=== PATIENT | female | born 1935 | race American Indian/Alaskan Native ===

== ENCOUNTER 2016-04-29 19:35 | Emergency (ER) | payer MEDICARE, MEDICAID ==
[2016-04-29 20:37] VITALS: BP 160/80
--- NOTE | 2016-04-29 21:29 | EDM.PDOC ---
ED HPI Trauma - General Chief Complaint: Lower Extremity Injury/Pain Stated Complaint: LEGS SWELLING Source: Reports: Patient, RN notes reviewed - History of Present Illness INITIAL COMMENTS - FREE TEXT/NARRATIVE: Fell tuesday going into [employer] tripping on door jam. Pain to left ankle and foot with swelling since, has continued to walk on foot. Utilizes walker or cane with ambulation. No loss of consciousness, no other injury Occurred When: other Method of Injury: fall Allergies/ADRs: Allergies No Known Allergies Allergy (Verified 04/29/16 19:39) Home Medications: Ambulatory Orders Aspirin 81 mg PO DAILY 04/12/13 [Confirmed 04/29/16] Carvedilol [Coreg] 12.5 mg PO BID 04/12/13 [Confirmed 04/29/16] Cyanocobalamin (Vitamin B12) [Vitamin B12] 1,000 mcg IM ONETIME 04/12/13 [ Confirmed 04/29/16] Ferrous Sulfate [Iron] 325 mg PO DAILY 04/12/13 [Confirmed 04/29/16] Furosemide 20 mg PO DAILY 04/12/13 [Confirmed 04/29/16] Lovastatin 20 mg PO DAILY 04/12/13 [Confirmed 04/29/16] Multivitamin with Minerals [Multiple Vitamin] 1 tab PO DAILY 04/12/13 [ Confirmed 04/29/16] Ramipril [Altace] 2.5 mg PO DAILY 04/12/13 [Confirmed 04/29/16] Ranitidine [Zantac] 150 mg PO BID 04/12/13 [Confirmed 04/29/16] Digoxin [Lanoxin] 125 mcg PO DAILY 04/13/13 [Confirmed 04/29/16] Hydrocodone/Acetaminophen [Lorcet 5-325 mg Tablet] 1 each PO BID 08/12/14 [ Confirmed 04/29/16] Levothyroxine [Synthroid] 50 mcg PO ACBREAKFAST 04/29/16 [Confirmed 04/29/16] Past Medical History Cardiovascular History: Reports: CAD, High cholesterol, Hypertension, Pacemaker Gastrointestinal History: Reports: Diverticulosis, GERD Genitourinary History: Reports: Renal disease, UTI, recurrent Musculoskeletal History: Reports: Gout, Osteoarthritis Hematologic History: Reports: Anemia Social & Family History - Tobacco Use Smoking Status *Q: Never Smoker Years of Tobacco use: 35 Used Tobacco, but Quit: Yes Month Tobacco Last Used: July Second Hand Smoke Exposure: No - Caffeine Use Caffeine Use: Reports: Coffee - Alcohol Use Days Per Week of Alcohol Use: 0 - Recreational Drug Use Recreational Drug Use: No - Living Situation & Occupation Living situation: Reports: , with family Occupation: retired Review of Systems - Review of Systems Review Of Systems: ROS reveals no pertinent complaints other than HPI. Trauma Exam - Physical Exam Exam: See Below Exam Limited By: No limitations General Appearance: Reports: alert, no apparent distress Head: Reports: atraumatic, normocephalic Eyes: bilateral eye: EOMI, PERRL Ears: Reports: normal external exam Nose: Reports: normal inspection Throat/Mouth: Reports: Normal oropharynx Neck: Reports: non-tender, full range of motion Respiratory Exam: Reports: no respiratory distress Cardiovascular: Reports: normal peripheral pulses GI/Abdominal: Reports: normal bowel sounds Extremities: Reports: normal range of motion, pain with movement, other (left forefoot and ankle swollen, tnder to lateral palpation , increased with inversion). Denies: no evidence of injury, unable to bear weight Course - Vital Signs Last Recorded V/S: Last Vital Signs Temp 97.8 F 04/29/16 20:36 Pulse 65 04/29/16 20:36 Resp 18 04/29/16 20:36 BP 160/80 H 04/29/16 20:36 Pulse Ox 98 04/29/16 20:36 - Radiology Interpretation Free Text/Narrative:: xray foot and ankle onleft negative Departure - Departure Time of Disposition: 21:27 Disposition: Home, Self-Care 01 Condition: good Clinical Impression: Mild ankle sprain Qualifiers: Encounter type: initial encounter Laterality: left Qualified Code(s): S93.402A - Sprain of unspecified ligament of left ankle, initial encounter Instructions: Ankle Sprain, [id number] Referrals: Alfredo Altman MD [Primary Care Provider] - Forms: ED Department Discharge Additional Instructions: elevate extremity use walker follow up in clinic in one week if continued pain and swelling anupam wrap for comfort
== END 2016-04-29 21:34 | disposition home or self-care (01) ==
LOC: DL.ED 19:35
DX: S93.402A Sprain of unspecified ligament of left ankle, initial encounter (principal); I25.10 Atherosclerotic heart disease of native coronary artery without angina pectoris; E78.00 Pure hypercholesterolemia, unspecified; I10 Essential (primary) hypertension; K21.9 Gastro-esophageal reflux disease without esophagitis; M19.90 Unspecified osteoarthritis, unspecified site; Z87.440 Personal history of urinary (tract) infections; Z86.2 Personal history of diseases of the blood and blood-forming organs and certain disorders involving the immune mechanism; W18.09XA Striking against other object with subsequent fall, initial encounter
CPT/HCPCS: 73610-LT; 73620-LT; 99282; 99283

== ENCOUNTER 2016-08-29 15:22 | Emergency (ER) | payer MEDICARE, MEDICAID ==
[2016-08-29 15:42] VITALS: BP 154/76
--- NOTE | 2016-08-29 16:39 | EDM.PDOC ---
ED HPI GENERAL MEDICAL PROBLEM - General Chief Complaint: Upper Extremity Injury/Pain Stated Complaint: CANT MOVE HER ARM, [id number] Time Seen by Provider: 08/29/16 16:34 Source of Information: Reports: Patient History Limitations: Reports: No Limitations - History of Present Illness INITIAL COMMENTS - FREE TEXT/NARRATIVE: 81 yo female presents with inability to move left arm. states that she woke this morning with pain with movement. C/o mid humerus pain, does not radiate, but states that she does have some shoulder pain. no complaints of weakness. no other complaints. Onset: Today, Sudden Duration: Constant Location: Reports: Upper Extremity, Left Quality: Reports: Ache, Throbbing Severity: Moderate Improves with: Reports: None Worsens with: Reports: Movement Context: Reports: Activity Associated Symptoms: Reports: No Other Symptoms Left Arm Pain Score (Numeric/FACES): 8 - Related Data Allergies Allergy/AdvReac Type Severity Reaction Status Date / Time No Known Allergies Allergy Verified 04/29/16 19:39 Home Meds: Home Meds Aspirin 81 mg PO DAILY 04/12/13 [History] Carvedilol [Coreg] 12.5 mg PO BID 04/12/13 [History] Cyanocobalamin (Vitamin B12) [Vitamin B12] 1,000 mcg IM ONETIME 04/12/13 [ History] Ferrous Sulfate [Iron] 325 mg PO DAILY 04/12/13 [History] Furosemide 20 mg PO DAILY 04/12/13 [History] Lovastatin 20 mg PO DAILY 04/12/13 [History] Multivitamin with Minerals [Multiple Vitamin] 1 tab PO DAILY 04/12/13 [History] Ramipril [Altace] 2.5 mg PO DAILY 04/12/13 [History] Ranitidine [Zantac] 150 mg PO BID 04/12/13 [History] Digoxin [Lanoxin] 125 mcg PO DAILY 04/13/13 [History] Hydrocodone/Acetaminophen [Lorcet 5-325 mg Tablet] 1 each PO BID 08/12/14 [ History] Levothyroxine [Synthroid] 50 mcg PO ACBREAKFAST 04/29/16 [History] Past Medical History Cardiovascular History: Reports: CAD, High Cholesterol, Hypertension, Pacemaker Gastrointestinal History: Reports: Diverticulosis, GERD Genitourinary History: Reports: Renal Disease, UTI, Recurrent Musculoskeletal History: Reports: Gout, Osteoarthritis Hematologic History: Reports: Anemia Social & Family History - Tobacco Use Smoking Status *Q: Never Smoker Years of Tobacco use: 35 Used Tobacco, but Quit: Yes Month Tobacco Last Used: July Second Hand Smoke Exposure: No - Caffeine Use Caffeine Use: Reports: Soda, Tea - Alcohol Use Days Per Week of Alcohol Use: 0 - Recreational Drug Use Recreational Drug Use: No - Living Situation & Occupation Living situation: Reports: , with Family Occupation: Retired Review of Systems - Review of Systems Review Of Systems: ROS reveals no pertinent complaints other than HPI. ED EXAM, GENERAL - Physical Exam Exam: See Below Exam Limited By: No Limitations General Appearance: Alert, WD/WN, No Apparent Distress Eye Exam: Bilateral Eye: PERRL Neck: Normal Inspection, Supple, Non-Tender, Full Range of Motion Respiratory/Chest: No Respiratory Distress, Lungs Clear, Normal Breath Sounds, No Accessory Muscle Use, Chest Non-Tender Cardiovascular: Normal Peripheral Pulses, Regular Rate, Rhythm, No Edema, No Gallop, No JVD, No Murmur, No Rub GI/Abdominal: Normal Bowel Sounds, Soft, Non-Tender, No Organomegaly, No Distention, No Abnormal Bruit, No Mass Extremities: Normal Inspection, Non-Tender, No Pedal Edema, Normal Capillary Refill, Limited Range of Motion (due to pain, unbale to flex leg arm or raise at shoulder. Adduction only. ), Other (health support specialist equal bialterally ) Neurological: Alert, Oriented Skin Exam: Warm, Dry, Intact, Normal Color, No Rash Course - Vital Signs Last Recorded V/S: Last Vital Signs Temp 98.4 F 08/29/16 15:41 Pulse 77 08/29/16 15:41 Resp 20 08/29/16 15:41 BP 154/76 H 08/29/16 15:41 Pulse Ox 96 08/29/16 15:41 - Orders/Labs/Meds Orders: Active Orders 24 hr Category Date Time Status Humerus Lt [CR] Urgent Exams 08/29/16 16:46 Taken Meds: Medications Discontinued Medications Generic Name Dose Route Start Last Admin Trade Name Freq PRN Reason Stop Dose Admin Orphenadrine Citrate 60 mg 08/29/16 17:45 08/29/16 18:03 Norflex IM 08/29/16 17:46 60 mg Q12H ONE Administration - Radiology Interpretation Free Text/Narrative:: no acute frcture noted. Old degenerative changes per radiology. X-ray tech states unable to get x-rays due to pain. will give muscle relaxant and monitor. Departure - Departure Time of Disposition: 18:05 Disposition: Home, Self-Care 01 Clinical Impression: Shoulder contusion Qualifiers: Encounter type: initial encounter Laterality: left Qualified Code(s): S40.012A - Contusion of left shoulder, initial encounter - Discharge Information Instructions: Shoulder Pain, [id number] Forms: ED Department Discharge Additional Instructions: Take your pain medication as prescribed. Take the muscle relaxer as needed for spasms. Do range of motion exercises to strengthen arm. Follow up in 1 week with your PCP. They may need to do another x-ray of the shoulder to evaluate for fracture. return for any worsening symptoms. - My Orders Last 24 Hours: My Active Orders 08/29/16 16:46 Humerus Lt [CR] Urgent - Assessment/Plan Last 24 Hours: My Active Orders 08/29/16 16:46 Humerus Lt [CR] Urgent
== END 2016-08-29 18:23 | disposition home or self-care (01) ==
LOC: DL.ED 15:22
DX: S40.012A Contusion of left shoulder, initial encounter (principal); I25.10 Atherosclerotic heart disease of native coronary artery without angina pectoris; I10 Essential (primary) hypertension; K21.9 Gastro-esophageal reflux disease without esophagitis; D64.9 Anemia, unspecified; M19.90 Unspecified osteoarthritis, unspecified site; Z79.82 Long term (current) use of aspirin; Z87.440 Personal history of urinary (tract) infections; Z79.899 Other long term (current) drug therapy; X58.XXXA Exposure to other specified factors, initial encounter
CPT/HCPCS: 73060; 96372; 99284; J2360

== ENCOUNTER 2016-09-01 13:29 | Emergency (ER) | payer MEDICARE, MEDICAID ==
[2016-09-01 13:21] VITALS: BP 147/77
--- NOTE | 2016-09-01 15:04 | EDM.PDOC ---
ED HPI GENERAL MEDICAL PROBLEM - General Chief Complaint: General Stated Complaint: IN BY AMBULANCE Time Seen by Provider: 09/01/16 14:45 Source of Information: Reports: Patient, Family History Limitations: Reports: No Limitations - History of Present Illness INITIAL COMMENTS - FREE TEXT/NARRATIVE: This 81 yo female patient was brought to the ED by [facility] due to increased confusion and nausea. The patient reports she is feeling normal at this time, but the family reports the patient was not acting normally starting at about 0200 this morning. The patient could not remember the names of her grandchildren. The patient was seen in the ED 2 days ago for arm pain and was started on Baclofen. The family believes the medication gave her the symptoms. Since the symptoms started, the patient stopped taking the medication and the family threw it away. Onset: Today Onset Date: 09/01/16 Onset Time: 02:00 Duration: Constant, Improving Location: Reports: Other Severity: Moderate Improves with: Reports: None Worsens with: Reports: None Associated Symptoms: Reports: No Other Symptoms - Related Data Allergies Allergy/AdvReac Type Severity Reaction Status Date / Time No Known Allergies Allergy Verified 04/29/16 19:39 Home Meds: Home Meds Aspirin 81 mg PO DAILY 04/12/13 [History] Carvedilol [Coreg] 12.5 mg PO BID 04/12/13 [History] Cyanocobalamin (Vitamin B12) [Vitamin B12] 1,000 mcg IM ONETIME 04/12/13 [ History] Ferrous Sulfate [Iron] 325 mg PO DAILY 04/12/13 [History] Furosemide 20 mg PO DAILY 04/12/13 [History] Lovastatin 20 mg PO DAILY 04/12/13 [History] Multivitamin with Minerals [Multiple Vitamin] 1 tab PO DAILY 04/12/13 [History] Ramipril [Altace] 2.5 mg PO DAILY 04/12/13 [History] Ranitidine [Zantac] 150 mg PO BID 04/12/13 [History] Digoxin [Lanoxin] 125 mcg PO DAILY 04/13/13 [History] Hydrocodone/Acetaminophen [Lorcet 5-325 mg Tablet] 1 each PO BID 08/12/14 [ History] Levothyroxine [Synthroid] 50 mcg PO ACBREAKFAST 04/29/16 [History] Past Medical History Cardiovascular History: Reports: CAD, High Cholesterol, Hypertension, Pacemaker Gastrointestinal History: Reports: Diverticulosis, GERD Genitourinary History: Reports: Renal Disease, UTI, Recurrent Musculoskeletal History: Reports: Gout, Osteoarthritis Hematologic History: Reports: Anemia Social & Family History - Tobacco Use Smoking Status *Q: Never Smoker Years of Tobacco use: 35 Used Tobacco, but Quit: Yes Month Tobacco Last Used: July Second Hand Smoke Exposure: No - Caffeine Use Caffeine Use: Reports: Coffee, Soda - Alcohol Use Days Per Week of Alcohol Use: 0 - Recreational Drug Use Recreational Drug Use: No - Living Situation & Occupation Living situation: Reports: , with Family Occupation: Retired ED ROS GENERAL - Review of Systems Review Of Systems: ROS reveals no pertinent complaints other than HPI. ED EXAM, GENERAL - Physical Exam Exam: See Below Exam Limited By: No Limitations General Appearance: Alert, WD/WN, Mild Distress, Thin Eye Exam: Bilateral Eye: EOMI, Normal Inspection, PERRL Ears: Normal External Exam, Normal Canal, Hearing Grossly Normal, Normal TMs Nose: Normal Inspection, Normal Mucosa, No Blood Throat/Mouth: Normal Inspection, Normal Lips, Normal Teeth, Normal Gums, Normal Oropharynx, Normal Voice, No Airway Compromise Head: Atraumatic, Normocephalic Neck: Normal Inspection, Supple, Non-Tender, Full Range of Motion Respiratory/Chest: No Respiratory Distress, Lungs Clear, Normal Breath Sounds, No Accessory Muscle Use, Chest Non-Tender Cardiovascular: Normal Peripheral Pulses, Regular Rate, Rhythm, No Edema, No Gallop, No JVD, No Murmur, No Rub GI/Abdominal: Normal Bowel Sounds, Soft, Non-Tender, No Organomegaly, No Distention, No Abnormal Bruit, No Mass (Female) Exam: Deferred Rectal (Female) Exam: Deferred Back Exam: Normal Inspection, Full Range of Motion, NT Extremities: Normal Inspection, Normal Range of Motion, Non-Tender, Normal Capillary Refill, No Pedal Edema Neurological: Alert, Oriented, CN II-XII Intact, Normal Cognition, Normal Gait, Normal Reflexes, No Motor/Sensory Deficits Psychiatric: Normal Affect, Normal Mood Skin Exam: Warm, Dry, Intact, Normal Color, No Rash Lymphatic: No Adenopathy Course - Vital Signs Last Recorded V/S: Last Vital Signs Temp 35.9 C 09/01/16 13:19 Pulse 78 09/01/16 13:19 Resp 20 09/01/16 13:19 BP 147/77 H 09/01/16 13:19 Pulse Ox 97 09/01/16 13:19 - Orders/Labs/Meds Labs: Laboratory Tests 09/01/16 09/01/16 09/01/16 Range/Units 13:48 15:07 15:07 WBC 6.1 (5.0-10.0) 10^3/uL RBC 3.79 L (4.2-5.4) 10^6/uL Hgb 10.6 L (12.0-16.0) g/dL Hct 33.9 L (37.0-47.0) % MCV 89.4 (80-100) fL MCH 28.0 (27.0-34.0) pg MCHC 31.3 L (33.0-35.0) g/dL Plt Count 239 (150-450) 10^3/uL Neut % (Auto) 76.1 H (42.2-75.2) % Lymph % (Auto) 15.7 L (20.5-50.1) % [place] % (Auto) 6.9 (2-8) % Eos % (Auto) 1.1 (1.0-3.0) % Baso % (Auto) 0.2 (0.0-1.0) % Sodium 141 (135-145) mmol/L Potassium 5.0 (3.6-5.0) mmol/L Chloride 110 (101-111) mmol/L Carbon Dioxide 19.0 L (21.0-31.0) mmol/L Anion Gap 17.0 BUN 55 H (7-18) mg/dL Creatinine 2.5 H (0.6-1.3) mg/dL Est Cr Clr Drug Dosing 14.72 mL/min Estimated GFR (MDRD) 18 BUN/Creatinine Ratio 22.00 Glucose 107 H (74-105) mg/dL Calcium 8.9 (8.4-10.2) mg/dl Total Bilirubin 0.5 (0.2-1.0) mg/dL AST 14 (10-42) IU/L ALT 9 L (10-60) IU/L Alkaline Phosphatase 55 (42-121) IU/L Total Protein 7.4 (6.7-8.2) g/dl Albumin 3.6 (3.2-5.5) g/dl Globulin 3.8 Albumin/Globulin Ratio 0.95 Urine Color Yellow (YELLOW) Urine Appearance Cloudy (CLEAR) Urine pH 5.0 (5.0-9.0) Ur Specific [place] 1.015 (1.005-1.030) Urine Protein Negative (NEGATIVE) Urine Glucose (UA) Negative (NEGATIVE) Urine Ketones Negative (NEGATIVE) Urine Occult Blood Negative (NEGATIVE) Urine Nitrite Negative (NEGATIVE) Urine Bilirubin Negative (NEGATIVE) Urine Urobilinogen 0.2 (0.2-1.0) mg/dL Ur Leukocyte Esterase Trace H (NEGATIVE) Urine RBC 0-5 /HPF Urine WBC 5-10 H (0-5/HPF) /HPF Ur Epithelial Cells Few /HPF Urine Bacteria Rare (0-FEW/HPF) /HPF Hyaline Casts Few H /LPF Urine Mucus Rare /LPF Departure - Departure Time of Disposition: 15:55 Disposition: Home, Self-Care 01 Condition: Fair Clinical Impression: Dehydration Medication reaction Qualifiers: Encounter type: initial encounter Qualified Code(s): T88.7XXA - Unspecified adverse effect of drug or medicament, initial encounter - Discharge Information Instructions: Dehydration, Adult, [id number] Forms: ED Department Discharge Care Plan Goals: The patient and family were advised of the examination, lab and CT results during the visit. The patient was encouraged to avoid taking Baclofen. The patient should increase her oral fluid intake. If the patient has any additional symptoms or concerns, the patient should visit her primary care facility or return to the emergency department.
--- NOTE | 2016-09-01 15:34 | CT ---
Clinical history: 81-year-old 130 pound hypertensive female with altered memory reported on previous CT scan head August 2008 to have "surgical changes left cranial vault (left parietal craniotomy) and intraventricular shunt tube". Scan technique: 1. Anterior left ([id number]) bone flap but otherwise uniformly thick bony calvarium without sign of extracerebral/intracranial epidural or subdural hematoma. Chronic left maxillary and ethmoid sinusitis. 2. Shunt tube entering ming hole posterior right parietal convexity follows a course through the cer ebral tissue posterior-anterior, with tip lying midline between the frontal horns unchanged when com pared directly to 16 August 2008 exam. 3. 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 Physiologic midline and symmetric choroid plexus calcifications. 4. No new sign of supratentorial or posterior fossa mass lesion this patient with scattered tiny aixa rovascular ischemic change. 5. No hydrocephalus. Cerebellum and brainstem unremarkable. 6. No acute intracerebral/intraventricular/subarachnoid bleed. CONCLUSION: No acute new intracranial abnormality (i.e. unchanged compared 16 August 2008).
== END 2016-09-01 16:13 | disposition home or self-care (01) ==
LOC: DL.ED 13:29
DX: R41.0 Disorientation, unspecified (principal); T42.8X5A Adverse effect of antiparkinsonism drugs and other central muscle-tone depressants, initial encounter; E86.0 Dehydration; Y92.019 Unspecified place in single-family (private) house as the place of occurrence of the external cause; I25.10 Atherosclerotic heart disease of native coronary artery without angina pectoris; E78.00 Pure hypercholesterolemia, unspecified; I12.9 Hypertensive chronic kidney disease with stage 1 through stage 4 chronic kidney disease, or unspecified chronic kidney disease; N18.9 Chronic kidney disease, unspecified; Z79.899 Other long term (current) drug therapy; Z95.0 Presence of cardiac pacemaker
CPT/HCPCS: 36415; 70450; 80053; 81001; 85025; 99282; 99285

== ENCOUNTER 2016-10-05 15:41 | Emergency (ER) | payer MEDICARE, MEDICAID ==
--- NOTE | 2016-10-05 15:11 | EDM.PDOC ---
ED HPI GENERAL MEDICAL PROBLEM - General Chief Complaint: CPR in Progress Stated Complaint: CODE BLUE IN BY AMB Time Seen by Provider: 10/05/16 14:13 Source of Information: Reports: EMS History Limitations: Reports: Other (CPR , pt unresponsive) - History of Present Illness INITIAL COMMENTS - FREE TEXT/NARRATIVE: 81 nyo female brought in by EMS in active CPR. Per EMS pt was found down upon there arrival for unknown amount of time. Unsure of cause. Pt asystole upon arrival after 3 rounds of Epi. No defibrillation given. Onset: Today, Sudden Treatments COTTON SAMPLER: Reports: CPR, Intubation - Related Data Allergies Allergy/AdvReac Type Severity Reaction Status Date / Time No Known Allergies Allergy Verified 04/29/16 19:39 Home Meds: Home Meds Aspirin 81 mg PO DAILY 04/12/13 [History] Carvedilol [Coreg] 12.5 mg PO BID 04/12/13 [History] Cyanocobalamin (Vitamin B12) [Vitamin B12] 1,000 mcg IM ONETIME 04/12/13 [ History] Ferrous Sulfate [Iron] 325 mg PO DAILY 04/12/13 [History] Furosemide 20 mg PO DAILY 04/12/13 [History] Lovastatin 20 mg PO DAILY 04/12/13 [History] Multivitamin with Minerals [Multiple Vitamin] 1 tab PO DAILY 04/12/13 [History] Ramipril [Altace] 2.5 mg PO DAILY 04/12/13 [History] Ranitidine [Zantac] 150 mg PO BID 04/12/13 [History] Digoxin [Lanoxin] 125 mcg PO DAILY 04/13/13 [History] Hydrocodone/Acetaminophen [Lorcet 5-325 mg Tablet] 1 each PO BID 08/12/14 [ History] Levothyroxine [Synthroid] 50 mcg PO ACBREAKFAST 04/29/16 [History] Past Medical History Cardiovascular History: Reports: CAD, High Cholesterol, Hypertension, Pacemaker Gastrointestinal History: Reports: Diverticulosis, GERD Genitourinary History: Reports: Renal Disease, UTI, Recurrent Musculoskeletal History: Reports: Gout, Osteoarthritis Hematologic History: Reports: Anemia Social & Family History - Tobacco Use Smoking Status *Q: Never Smoker Years of Tobacco use: 35 Used Tobacco, but Quit: Yes Month Tobacco Last Used: July Second Hand Smoke Exposure: No - Caffeine Use Caffeine Use: Reports: Coffee, Soda - Alcohol Use Days Per Week of Alcohol Use: 0 - Recreational Drug Use Recreational Drug Use: No - Living Situation & Occupation Living situation: Reports: , with Family Occupation: Retired ED ROS GENERAL - Review of Systems Review Of Systems: Unable To Obtain ED EXAM, CPR - Physical Exam Exam: See Below Limited By: Unresponsive General Appearance: Obtunded Eye Exam: Bilateral Eye: Abnormal Pupil Throat/Mouth: Other (intubated) Head: Atraumatic Respiratory Chest: Lungs Clear Cardiovascular: CPR In Progress GI/Abdominal Exam: Soft Extremities: Pallor Skin Exam: No Rash, Cool, Pallor Departure - Departure Time of Disposition: 14:30 Disposition: 20 Preliminary Cause of *Q: Cardiac Arrest Clinical Impression: Cardiac arrest - Discharge Information
[2016-10-05] MEDS ORDERED: Sodium Chloride 0.9% 1,000 ML IV ONE (15:42)
[2016-10-05] MEDS ORDERED: EPINEPHrine 1:10,000 1 MG/10 ML Syringe IV ONE (15:42)
[2016-10-05] MEDS ORDERED: Sodium Bicarbonate 8.4% 50 MEQ/50 ML Syringe IV ONE (15:42)
== END 2016-10-05 16:16 | disposition expired ==
LOC: DL.ED 15:41
DX: I46.9 Cardiac arrest, cause unspecified (principal); I25.10 Atherosclerotic heart disease of native coronary artery without angina pectoris; E78.00 Pure hypercholesterolemia, unspecified; I10 Essential (primary) hypertension; K21.9 Gastro-esophageal reflux disease without esophagitis; M19.90 Unspecified osteoarthritis, unspecified site; Z79.82 Long term (current) use of aspirin; Z79.899 Other long term (current) drug therapy; Z87.440 Personal history of urinary (tract) infections; Z86.2 Personal history of diseases of the blood and blood-forming organs and certain disorders involving the immune mechanism
CPT/HCPCS: 92950; 99291; J0171; J7030; 99285